=== PATIENT | male | born 1955 | race Caucasian/White ===

== ENCOUNTER 2017-09-04 08:14 | Day surgery (SDC) | payer OTHER, BC ==
[2017-09-04] VITALS (7 sets, daily range): BP systolic 128–149; BP diastolic 78–93; PULSE 62–78; TEMP 96.8–97.4
[~2017-09-04] VITALS: Ht 170.2 cm; Wt 75.6 kg
[~2017-09-04 08:14] MED LIST: ALEVE LIQCAPS PO; AMANTADINE HCL100 M1 PO; ASPIRIN 81M81 MG/TA2 PO; BACTRIM DS 8001 TAB PO; CEPHALEXIN500 M1 PO; CIPRO 500MG TA500 MG PO; EXCEDRIN1 TAB PO; FLOMAX 0.40.4 MG/CAP PO; LORTAB 5/500 501 TAB PO; METHOCARBAMOL500 MG PO; NAPROSYN500 MG PO; NO HOME MEDICATIONS; PROTONIX20 MG PO; ROXICODONE 55 MG/TAB PO; ULTRAM 50MG TAB50 MG PO
[2017-09-04] MEDS ORDERED: FLONASEALLERGY NS (09:00)
[2017-09-04] MEDS ORDERED: LIPITOR20 MG PO (09:01)
[2017-09-04] MEDS ORDERED: COLACE 100100 MG/CAP PO (09:01)
[2017-09-04] MEDS ORDERED: CLARITIN 1010 MG/TAB PO (09:02)
[2017-09-04] MEDS ORDERED: PRIL40 PO (09:02)
== END 2017-09-04 12:48 | disposition home or self-care (01) ==
LOC: SDCO 08:14
DX: N32.0 Bladder-neck obstruction (principal); E78.5 Hyperlipidemia, unspecified; G43.909 Migraine, unspecified, not intractable, without status migrainosus; N31.9 Neuromuscular dysfunction of bladder, unspecified; N40.1 Benign prostatic hyperplasia with lower urinary tract symptoms; R33.9 Retention of urine, unspecified; R39.12 Poor urinary stream; K21.9 Gastro-esophageal reflux disease without esophagitis; G47.33 Obstructive sleep apnea (adult) (pediatric); G89.29 Other chronic pain; M54.5 Low back pain; M54.2 Cervicalgia; Z85.6 Personal history of leukemia
CPT/HCPCS: A4215; C1769; J0690; J1100; J2405; J2704; J3010; J3301; J7120

== ENCOUNTER 2018-11-14 13:21 | Emergency (ER) | payer OTHER, BC ==
[~2018-11-14] VITALS: Ht 170.2 cm; Wt 74.1 kg
[~2018-11-14 13:21] MED LIST changes: +CLARITIN 1010 MG/TAB PO; +COLACE 100100 MG/CAP PO; +FLONASEALLERGY NS; +LIPITOR20 MG PO; +PRIL40 PO
[2018-11-14 13:27] VITALS: BP 143/90; TEMP 98.7
[2018-11-14 14:28] LABS: COLLECTION METHOD CLEAN CATCH
[2018-11-14 14:33] LABS: MUCOUS Present /lpf; PH 5 (5-8); SQUAMOUS EPITHELIAL None Seen /hpf; URINE APPEARANCE Clear; URINE BACTERIA None Seen /hpf; URINE BILIRUBIN Negative (NEGATIVE); URINE BLOOD Negative (NEGATIVE); URINE COLOR Yellow; URINE GLUCOSE Negative (NEGATIVE); URINE KETONE Trace (NEGATIVE); URINE LEUKOCYTE ESTERASE Negative (NEGATIVE); URINE NITRATE Negative (NEGATIVE); URINE PROTEIN(semi-quant) Negative (NEGATIVE); URINE RBC 0-2 /hpf; URINE UROBILINOGEN Negative (NEGATIVE)
[2018-11-14 14:42] LABS: ALBUMIN 4.3 gm/dL (3.5-5.0); BASO % 0.6 % (0.0-2.0); BILIRUBIN,TOTAL 0.3 mg/dL (0.0-1.0); C-REACTIVE PROTEIN 0.6 mg/dL (0.0-0.9); CALCIUM 9.3 mg/dL (8.4-10.2); CREATININE, serum 0.86 (0.66-1.25); EOS # 0.2 (0.0-0.7); EOS % 3.7 % (0-4.0); GRAN # 3.6 (1.4-6.5); GRAN % 57.3 % (42.2-75.2); HEMATOCRIT 47.4 % (42.0-52.0); HEMOGLOBIN 16.1 g/dl (13.5-18.0); LYMPH # 1.3 (1.2-3.4); LYMPH % 21.4 % (20.0-51.0); MEAN CELL VOLUME 88 fl (80.0-100.0); MEAN CORPUSCULAR HEMOGLOBIN 30 pg (27.0-31.0); MEAN CORPUSCULAR HGB CONC 34 g/dl (33.0-37.0); MONO % 16.7 % (1.7-9.3); PLATELET COUNT 206 K/mm3 (130-400); POTASSIUM 4.3 mmol/L (3.4-5.0); REDCELL DISTRIBUTION WIDTH-CV 12.9 % (11.5-14.5); TOTAL PROTEIN 7.3 gm/dL (6.4-8.2)
[2018-11-14] MEDS ORDERED: NAPROXEN 3375 MG/TAB PO (14:54)
[2018-11-14 15:16] VITALS: PULSE 67
== END 2018-11-14 15:16 | disposition home or self-care (01) ==
LOC: COL.ER 13:21
PROVIDERS: Emergency Medicine
DX: M54.5 Low back pain (principal); Z79.51 Long term (current) use of inhaled steroids
CPT/HCPCS: J1170; J1885